=== PATIENT | female | born 1965 | race American Indian/Alaskan Native ===

== ENCOUNTER 2017-08-17 06:21 | Day surgery (SDC) | payer BC, MEDICARE ==
[2017-08-17] MEDS ORDERED: XYLOCAINE MPF 2% ONE (07:30)
[2017-08-17] MEDS ORDERED: WATER FOR IRRIG STERILE IR ONE (07:33)
[2017-08-17] MEDS ORDERED: DIPRIVAN 10 MG/ML IV ONE ×3 (07:40→08:06)
[2017-08-17] MEDS ORDERED: NACL 0.9% 1000 ML 1,000 ML IV SCH (08:00)
--- NOTE | 2017-08-17 08:41 | Short Stay Summary ---
Short Stay Documentation - Allergies and Medications Current Medications: Allergies No Known Allergies Allergy (Verified 11/14/14 07:05) Home Medications Medication Instructions Recorded Confirmed Last Taken Type Carvedilol [Coreg] 3.12 mg PO BID 11/13/14 02/24/16 02/22/16 13:00 History 3.125MG Cyclobenzaprine [Flexeril 10 MG 10 mg PO DAILY 11/13/14 02/24/16 02/23/16 22:00 History TAB] 10MG Gabapentin [Gralise] 300 mg PO HS 11/13/14 02/24/16 02/23/16 22:00 History 300MG Hydrochlorothiazide [HCTZ] 25 mg PO QDAY 11/13/14 02/24/16 02/23/16 22:00 History 25MG Zolpidem [Ambien] 10 mg PO QHS 11/13/14 02/24/16 02/23/16 22:00 History 10MG ALBUTEROL Inhaler [ProAir HFA 2 puff INHALATION PRN PRN 02/10/16 02/24/16 2 Days Ago History Inhaler] ~02/22/16 Albuterol Sulfate [Albuterol 0.63% 1 dose INHALATION PRN PRN 02/10/16 02/24/16 1 Month Ago History NEBS] ~01/24/16 Allopurinol [Zyloprim] 300 mg PO QDAY 02/10/16 02/24/16 02/23/16 10:00 History 300MG Docusate Sodium [Colace CAP] 1 cap PO DAILY 02/10/16 02/24/16 02/23/16 16:00 History 1 cap Methadone HCl 5 mg PO DAILY 02/24/16 02/24/16 02/23/16 22:00 History 5MG Celecoxib [celeBREX] 200 mg PO BID capsule 02/26/16 Unknown Rx HYDROcodone/APAP 10-325 [[place] 1 each PO Q8HR PRN #45 tablet 02/26/16 Unknown Rx 10-325 mg TAB] Rivaroxaban [Xarelto] 10 mg PO QDAY tablet 02/26/16 Unknown Rx Active Medications Sodium Chloride (Nacl 0.9% 1000 Ml) 1,000 mls @ 50 mls/hr IV DIRECT ISSA Last Admin: 08/17/17 07:25 Dose: 50 mls/hr - Brief post op/procedure progress note Date of procedure: 08/17/17 Pre-op diagnosis: 1. Melena 2. RLQ abdominal pain 3. Colon cancer screening Post-op diagnosis: same (EGD: 1. GERD 2. Gastritis(erosive) 3. gastric ulcers 4. Duodenitis Colonoscopy: 1. Poor prep 2. Internal hemorrhoids 3. Rectal polyps) Procedure: 1. EGD with biopsy 2. Colonoscopy with biopsy Anesthesia: MAC Findings: as above Surgeon: TESSA LOPEZ Estimated blood loss: none Pathology: none (1. Antrum 2. Rectal polyps) Specimen disposition: to lab Condition: stable - Disposition Condition at discharge: Stable Disposition: [id number] TO HOME OR SELFCARE Short Stay Discharge Plan Activity: no restrictions Weight Bearing Status: Full Weight Bearing Diet: regular, low salt Follow up with: NICOLE JANE JR, MD [Primary Care Provider] - 7 Days
--- NOTE | 2017-08-17 08:47 | Anesthesia Day of Surgery ---
Anesthesia Day of Surgery - Day of Surgery Patient Examined: Yes Patient H&P Reviewed: Yes Patient is NPO: Yes
--- NOTE | 2017-08-17 08:47 | Anesthesia Consultation ---
Anesthesia Consult and Med Hx Date of service: 08/17/17 - Airway Anesthetic Teeth Evaluation: Poor (missing, broken back lower ) ROM Head & Neck: Adequate Mental/Hyoid Distance: Adequate Mallampati Class: Class III Intubation Access Assessment: Possibly Difficult - Pulmonary Exam CTA: Yes - Cardiac Exam Cardiac Exam: RRR - Pre-Operative Health Status ASA Pre-Surgery Classification: ASA3 Proposed Anesthetic Plan: MAC - Pulmonary Hx Smoking: Yes Hx Asthma: Yes COPD: Yes Hx Pneumonia: No Hx Sleep Apnea: Yes (cpap) - Cardiovascular System Hx Hypertension: Yes - Central Nervous System CVA: Yes ("MILD" 5 YRS AGO-left weakness ) Hx Back Pain: Yes (BACK PAIN WITH PETER LEG WEAKNESS/NUMBNESS) - Hematic Hx Anemia: Yes - Other Systems Hx Obesity: Yes
[2017-08-17 09:29] VITALS: BP 137/88
== END 2017-08-17 06:22 | disposition home or self-care (01) ==
LOC: GIO 06:21
PROVIDERS: ATTEND Internal Medicine Gastroenterology
DX: K62.1 Rectal polyp (principal); K31.7 Polyp of stomach and duodenum; K64.0 First degree hemorrhoids; K29.00 Acute gastritis without bleeding; K29.80 Duodenitis without bleeding; K21.9 Gastro-esophageal reflux disease without esophagitis; I10 Essential (primary) hypertension; J44.9 Chronic obstructive pulmonary disease, unspecified; E66.9 Obesity, unspecified; G47.33 Obstructive sleep apnea (adult) (pediatric); Z86.010 Personal history of colon polyps; Z99.89 Dependence on other enabling machines and devices; Z86.73 Personal history of transient ischemic attack (TIA), and cerebral infarction without residual deficits; Z90.710 Acquired absence of both cervix and uterus; Z87.891 Personal history of nicotine dependence; Z68.42 Body mass index [BMI] 45.0-49.9, adult
CPT/HCPCS: 43239; 45380; 88305; 88342; J2704; J7030

== ENCOUNTER 2017-09-06 07:17 | Outpatient (CLI) | payer MEDICARE ==
--- NOTE | 2017-09-06 10:13 | Fluoroscopy Report ---
AIR CONTRAST BARIUM ENEMA: History: Colon cancer screening, constipation. History of polyps. Findings: No relevant comparison. Video Manager film of the abdomen is within normal limits. A rectal tube was inserted for retrograde administration of barium contrast agent and air. The colon is normal mucosal pattern and caliber throughout. There is no evidence for stricture, mass, diverticulosis or obvious polyp. Normal appendix. The postevacuation film demonstrates normal emptying of the colon. Impression: Air contrast barium enema within normal limits.
== END 2017-09-06 07:18 | disposition home or self-care (01) ==
LOC: FLUORO 07:17
PROVIDERS: ATTEND Internal Medicine Gastroenterology
DX: Z12.11 Encounter for screening for malignant neoplasm of colon (principal); K59.00 Constipation, unspecified; I11.0 Hypertensive heart disease with heart failure; I50.9 Heart failure, unspecified; K21.9 Gastro-esophageal reflux disease without esophagitis; Z86.010 Personal history of colon polyps; Z87.891 Personal history of nicotine dependence
CPT/HCPCS: 74280

== ENCOUNTER 2018-09-13 09:41 | Day surgery (SDC) | payer MEDICARE ==
[~2018-09-13 09:41] MED LIST: ANCEF/STERILE WATER 2 GM/20 ML IV NR
[2018-09-13] MEDS ORDERED: PEPCID PO NR (10:00)
[2018-09-13] MEDS ORDERED: MARCAINE-EPI 0.25%-1:200,000 INFILTRATI ONE (10:10)
[2018-09-13] MEDS ORDERED: ADRENALINE P/F ONE (10:10)
[2018-09-13] MEDS ORDERED: XYLOCAINE 1% 20 mL ONE (10:40)
[2018-09-13] MEDS ORDERED: MARCAINE-EPI 0.5%-1:200,000 INFILTRATI ONE (10:41)
[2018-09-13] MEDS ORDERED: SUBLIMAZE IV ONE (11:00)
[2018-09-13] MEDS ORDERED: NEURONTIN PO NR (11:00)
[2018-09-13] MEDS ORDERED: LACTATED RINGERS 1,000 ML IV SCH (11:00)
[2018-09-13] MEDS ORDERED: PEPCID IV SCH (11:00)
[2018-09-13] MEDS ORDERED: VERSED IV NR (11:00)
[2018-09-13] MEDS ORDERED: ZOFRAN IV PRN (11:37)
[2018-09-13] MEDS ORDERED: DILAUDID IV PRN (11:37)
--- NOTE | 2018-09-13 11:37 | Anesthesia Day of Surgery ---
Anesthesia Day of Surgery - Day of Surgery Patient Examined: Yes Patient H&P Reviewed: Yes Patient is NPO: Yes
--- NOTE | 2018-09-13 11:37 | Anesthesia Consultation ---
Anesthesia Consult and Med Hx - Airway Anesthetic Teeth Evaluation: Good ROM Head & Neck: Adequate Mental/Hyoid Distance: Adequate Mallampati Class: Class II Intubation Access Assessment: Good - Pulmonary Exam CTA: Yes - Cardiac Exam Cardiac Exam: RRR - Pre-Operative Health Status ASA Pre-Surgery Classification: ASA3 Proposed Anesthetic Plan: General Nerve Block: IS - Pulmonary Hx Smoking: Yes (1/ PPD) Hx Asthma: Yes COPD: Yes (PRN INHALERS / NEB) Hx Sleep Apnea: Yes (DX SLEEP APNEA WITH CPAP USE.) - Cardiovascular System Hx Hypertension: Yes (X 5 YRS) - Central Nervous System CVA: Yes (7-10 YRS AGO- MILD LEFT SIDED WEAKNESS) Hx Back Pain: Yes (TO PETER LEGS WITH WEAKNESS & NUMBNESS , DAILY PAIN MEDS) Hx Psychiatric Problems: No - Gastrointestinal Hx Ulcer: Yes - Endocrine Hx End Stage Renal Disease: No - Hematic Hx Anemia: Yes (NOT RECENT) - Other Systems Hx Cancer: No Hx Obesity: Yes
[2018-09-13] MEDS ORDERED: DIPRIVAN 10 MG/ML IV ONE (11:39)
[2018-09-13] MEDS ORDERED: XYLOCAINE MPF 2% ONE (11:39)
[2018-09-13] MEDS ORDERED: SUBLIMAZE ONE (12:16)
[2018-09-13] MEDS ORDERED: ADRENALINE P/F IRRIGATION ONE ×2 (12:53)
[2018-09-13] MEDS ORDERED: ZEMURON IV ONE (13:40)
[2018-09-13] MEDS ORDERED: ROBINUL ONE (13:40)
[2018-09-13] MEDS ORDERED: BLOXIVERZ ONE (13:40)
[2018-09-13] MEDS ORDERED: ZOFRAN ONE (13:40)
[2018-09-13] MEDS ORDERED: PERCOCET 5/325 ONE (14:18)
[2018-09-13] MEDS ORDERED: PERCOCET 5/325 PO ONE (14:21)
--- NOTE | 2018-09-13 14:56 | Post Anesthesia Evaluation ---
- Post Anesthesia Evaluation Patient Participated: Yes Airway Patent: Yes Stable Respiratory Function: Yes Nausea/Vomiting: No Temp > 96.8F: Yes Pain Manageable: Yes Adequeate Hydration: Yes Anesthesia Complications: No Block Receding Appropriately: Yes Patient on Ventilator: No
[2018-09-13 16:00] VITALS: BP 140/82
--- NOTE | 2018-10-04 15:06 | Operative Report ---
PREOPERATIVE DIAGNOSES: Left shoulder with impingement syndrome, bursitis, rotator cuff tear. POSTOPERATIVE DIAGNOSES: 1. Left shoulder with extensive synovitis. 2. Loose body. 3. Extensive global labral tearing fraying. 4. Rotator cuff attenuation. 5. Grade 3 chondral lesion central aspect, trochlear groove. 6. Subacromial impingement, bursitis. PROCEDURE PERFORMED: 1. Left shoulder arthroscopy with extensive debridement including synovectomy, labral debridement, rotator cuff debridement and chondroplasty glenoid. 2. Arthroscopic loose body removal. 3. Arthroscopic subacromial bursectomy and decompression. SURGEON: Singh Fung M.D. SCRAP SAWYER: Nile Yen CSA. ANESTHESIA: General plus scalene block. ESTIMATED BLOOD LOSS: Minimal. COMPLICATIONS: None. DESCRIPTION OF PROCEDURE: The patient underwent successful induction of anesthesia. She was positioned in a beach chair position, prepped and draped in the usual fashion. The patient was morbidly obese, increasing the complexity of the procedure. After antibiotic administration and prepping, the arthroscopy was performed utilizing standard posterior portal and entry made through the triangular space under direct vision. Systematic exam of the joint was carried out, demonstrated the findings noted. Marked synovitis noted with marked labral attenuation and fraying which was appropriately debrided. The articular surface of the humeral head was relatively well preserved, but the glenoid demonstrated large central chondral lesion grade 3. A gentle chondroplasty affected with a full-radius resector. The biceps itself was relatively well preserved. The rotator cuff though demonstrated attenuation, demonstrated no detachment. Loose bodies were removed from the intra-articular space and with consideration of even synovial chondromatosis. The excellent debridement was carried out utilizing both portals. No further abnormalities were noted. At this point in time, the arthroscope was placed in the subacromial space of the posterior portal. Noted to have a marked subacromial bursitis. A type 3 acromion was noted. Through straight lateral portal, decompression was affected with a cutting block technique. An excellent flat surface was achieved. The outer surface of the cuff demonstrated marked subacromial bursitis and this was appropriately debrided. Excellent debridement achieved. No significant full thickness tearing was noted. Again, the rotator cuff appeared to be relatively well preserved, certainly in continuity. Thorough probing of this was carried out. Limited attenuation was noted but as noted, no tearing and no detachment. It was not felt this required any further treatment. Intraoperative photos were obtained for documentation. The arthroscopic instrumentation was removed. Ports were closed with nylon sutures. Steri-Strips were applied. She was taken to the recovery in satisfactory condition having tolerated the procedure well. JOB# [id number] REBEKAP/NTS
== END 2018-09-13 09:42 | disposition home or self-care (01) ==
LOC: OR 09:41
PROVIDERS: ATTEND Orthopaedic Surgery
DX: S43.492A Other sprain of left shoulder joint, initial encounter (principal); M65.812 Other synovitis and tenosynovitis, left shoulder; M24.012 Loose body in left shoulder; M75.52 Bursitis of left shoulder; I10 Essential (primary) hypertension; M10.9 Gout, unspecified; G43.909 Migraine, unspecified, not intractable, without status migrainosus; I11.0 Hypertensive heart disease with heart failure; I50.9 Heart failure, unspecified; E78.00 Pure hypercholesterolemia, unspecified; J44.9 Chronic obstructive pulmonary disease, unspecified; G47.30 Sleep apnea, unspecified; E66.9 Obesity, unspecified; K21.9 Gastro-esophageal reflux disease without esophagitis; F17.210 Nicotine dependence, cigarettes, uncomplicated; M06.9 Rheumatoid arthritis, unspecified; F32.9 Major depressive disorder, single episode, unspecified; F41.9 Anxiety disorder, unspecified; Z80.0 Family history of malignant neoplasm of digestive organs; Z79.899 Other long term (current) drug therapy; Z68.42 Body mass index [BMI] 45.0-49.9, adult; Z90.710 Acquired absence of both cervix and uterus; Z86.73 Personal history of transient ischemic attack (TIA), and cerebral infarction without residual deficits; X58.XXXA Exposure to other specified factors, initial encounter; Y93.89 Activity, other specified; Y92.89 Other specified places as the place of occurrence of the external cause; Y99.8 Other external cause status
CPT/HCPCS: 29823; 36415; 84132; J0171; J0690; J1170; J2250; J2405; J2704; J2710; J3010; J7120

== ENCOUNTER 2018-12-27 10:44 | Day surgery (SDC) | payer MEDICARE ==
[~2018-12-27 10:44] MED LIST changes: +MARCAINE-EPI 0.25%-1:200,000 IJ ONE
[2018-12-27] MEDS ORDERED: XYLOCAINE MPF 2% ONE (11:58)
[2018-12-27] MEDS ORDERED: VERSED ONE (11:58)
[2018-12-27] MEDS ORDERED: SUBLIMAZE ONE (11:59)
[2018-12-27] MEDS ORDERED: DIPRIVAN 10 MG/ML IV ONE ×2 (11:59→14:05)
[2018-12-27] MEDS ORDERED: MARCAINE-EPI 0.25%-1:200,000 INFILTRATI ONE (12:27)
[2018-12-27] MEDS ORDERED: ZOFRAN IV PRN (12:32)
[2018-12-27] MEDS ORDERED: PROTONIX IV NR (12:35)
--- NOTE | 2018-12-27 12:38 | Anesthesia Day of Surgery ---
Anesthesia Day of Surgery - Day of Surgery Patient Examined: Yes Patient H&P Reviewed: Yes Patient is NPO: Yes Beta Blockers: Yes
--- NOTE | 2018-12-27 12:40 | Anesthesia Consultation ---
Anesthesia Consult and Med Hx Date of service: 12/27/18 - Airway Anesthetic Teeth Evaluation: Chipped ROM Head & Neck: Adequate Mental/Hyoid Distance: Adequate Mallampati Class: Class III Intubation Access Assessment: Probably Good - Pre-Operative Health Status ASA Pre-Surgery Classification: ASA3 Proposed Anesthetic Plan: General - Pulmonary Hx Smoking: Yes (/ PPD) Hx Asthma: Yes (DAILY INHALER) Hx Respiratory Symptoms: Yes COPD: Yes (PRN INHALERS / NEB) Hx Sleep Apnea: Yes (DX SLEEP APNEA WITH CPAP USE.) - Cardiovascular System Hx Hypertension: Yes (X 5 YRS) - Central Nervous System CVA: Yes (7-10 YRS AGO- MILD LEFT SIDED WEAKNESS) Hx Back Pain: Yes (TO PETER LEGS WITH WEAKNESS & NUMBNESS , DAILY PAIN MEDS) - Gastrointestinal Hx Ulcer: Yes Hx Gastroesophageal Reflux Disease: Yes - Endocrine Hx End Stage Renal Disease: No - Hematic Hx Anemia: Yes (NOT RECENT) - Other Systems Hx Cancer: No Hx Obesity: Yes
[2018-12-27] MEDS ORDERED: LACTATED RINGERS 1,000 ML IV SCH (13:00)
[2018-12-27] MEDS ORDERED: REGLAN IV NR (13:00)
[2018-12-27] MEDS ORDERED: COREG PO NR (13:00)
[2018-12-27] MEDS ORDERED: NACL 0.9% IR ONE (13:30)
[2018-12-27] MEDS ORDERED: ZEMURON IV ONE (13:44)
[2018-12-27] MEDS ORDERED: MARCAINE-EPI 0.25%-1:200,000 IJ ONE (14:25)
[2018-12-27] MEDS ORDERED: DECADRON ONE (14:27)
[2018-12-27] MEDS ORDERED: ZOFRAN ONE (14:27)
[2018-12-27] MEDS ORDERED: ROBINUL ONE (14:28)
[2018-12-27] MEDS ORDERED: BLOXIVERZ ONE (14:28)
[2018-12-27] MEDS: SUBLIMAZE IV PRN ×4 (14:45→15:40)
[2018-12-27 16:19] VITALS: BP 122/82
--- NOTE | 2018-12-27 16:42 | Post Anesthesia Evaluation ---
- Post Anesthesia Evaluation Patient Participated: Yes Airway Patent: Yes Stable Respiratory Function: Yes Nausea/Vomiting: No Temp > 96.8F: Yes Pain Manageable: Yes Adequeate Hydration: Yes Anesthesia Complications: No
--- NOTE | 2018-12-27 18:19 | Operative Report ---
PREOPERATIVE DIAGNOSES: 1. Right knee with degenerative joint disease and meniscal tears. 2. Morbid obesity. INTRAOPERATIVE FINDINGS: 1. Right knee with extensive tear, medial meniscus. 2. Extensive tear, lateral meniscus. 3. Grade 3 chondromalacia, medial femoral condyle. 4. Grade 3 chondromalacia, patella. 5. Extensive synovitis. PROCEDURE PERFORMED: 1. Right knee arthroscopy with partial medial and lateral meniscectomy -- complex -- morbid obesity. 2. Extensive synovectomy, tricompartmental. 2. Chondroplasty, patella. 4. Chondroplasty, medial femoral condyle. SURGEON: Dr. Singh Fung. BAR MANAGER: Nile Yen CSA. ANESTHESIA: General. ESTIMATED BLOOD LOSS: Minimal. COMPLICATIONS: None. DESCRIPTION OF PROCEDURE: The patient underwent successful induction of anesthesia, extremity was kept on well-leg nunez, prepped and draped in usual fashion. Antibiotics were pre-administered. Lower extremity was exsanguinated, tourniquet inflated. This was a complex procedure given her morbid obesity. Arthroscopy was carried out with standard medial and lateral portals. Systematic exam of the joint was carried out demonstrated the findings noted. The tricompartmental extensive synovitis was noted which was appropriately debrided. Patellofemoral compartment demonstrated relatively well preserved trochlear groove. The patella demonstrated diffuse grade 3 chondromalacia gently debrided with a surface at low pressure setting in a noncontact chondral sparing mode. The lateral compartment demonstrated extensive complex tearing of the meniscus globally throughout debrided with a combination of bites full resector and surface. An excellent stable rim was achieved, allowing preservation of the peripheral 2/3 of meniscus throughout. Intraoperative photos were obtained for documentation. The articular surface relatively observed with the lateral compartment with the exception of fissuring on the lateral tibial plateau. The notch demonstrated some attenuation of the ACL. Synovectomy again performed. The medial compartment demonstrated grade 3 chondral lesion in medial femoral condyle, unstable chondral flaps, gently debrided with a full radius resector. The meniscus demonstrated a radial tear at the junction of the posterior horn body and central degenerative changes, again debrided with a full radius resector and surface allowing preservation of peripheral 70-75% of meniscus throughout. Intraoperative photos were obtained for documentation. The arthroscopic instrumentation was removed. The ports were closed with nylon suture. Steri-stripes were applied and taken to the recovery room in satisfactory condition having tolerated the procedure well. JOB# [id number] RDP/NTS
== END 2018-12-27 16:50 | disposition home or self-care (01) ==
LOC: OR 10:44
PROVIDERS: ATTEND Orthopaedic Surgery
DX: M23.221 Derangement of posterior horn of medial meniscus due to old tear or injury, right knee (principal); M23.200 Derangement of unspecified lateral meniscus due to old tear or injury, right knee; M22.41 Chondromalacia patellae, right knee; M65.861 Other synovitis and tenosynovitis, right lower leg; E66.01 Morbid (severe) obesity due to excess calories; F32.9 Major depressive disorder, single episode, unspecified; F41.9 Anxiety disorder, unspecified; M06.9 Rheumatoid arthritis, unspecified; K21.9 Gastro-esophageal reflux disease without esophagitis; J44.9 Chronic obstructive pulmonary disease, unspecified; G47.30 Sleep apnea, unspecified; I11.0 Hypertensive heart disease with heart failure; I50.9 Heart failure, unspecified; E78.00 Pure hypercholesterolemia, unspecified; F17.210 Nicotine dependence, cigarettes, uncomplicated; Z79.899 Other long term (current) drug therapy; Z80.0 Family history of malignant neoplasm of digestive organs; Z96.652 Presence of left artificial knee joint; Z90.710 Acquired absence of both cervix and uterus; Z90.721 Acquired absence of ovaries, unilateral; Z68.42 Body mass index [BMI] 45.0-49.9, adult; Z86.2 Personal history of diseases of the blood and blood-forming organs and certain disorders involving the immune mechanism; Z86.73 Personal history of transient ischemic attack (TIA), and cerebral infarction without residual deficits; X58.XXXA Exposure to other specified factors, initial encounter; Y93.89 Activity, other specified; Y92.89 Other specified places as the place of occurrence of the external cause; Y99.8 Other external cause status
CPT/HCPCS: 29876; 29880; A4217; C9113; J0690; J1100; J2250; J2405; J2704; J2710; J2765; J3010; J7120

== ENCOUNTER 2019-01-18 09:44 | Outpatient (CLI) | payer MEDICARE ==
--- NOTE | 2019-01-18 12:30 | Mammography Report ---
DIGITAL SCREENING MAMMOGRAM WITH CAD, 01/18/2019 INDICATION: Routine screening mammography. TECHNIQUE: Digital bilateral 2D mammography was obtained in the craniocaudal and mediolateral obliq ue projections. This examination was interpreted with the benefit of Computer-Aided Detection analysi s. COMPARISON: None. FINDINGS: Breast Density: There are scattered areas of fibroglandular density. There is no evidence of dominant mass, suspicious calcifications or architectural distortion in eithe r breast. IMPRESSION: No mammographic evidence of malignancy. Follow up recommendation: Routine yearly BI-RADS Category 1: Negative. A "normal" or negative report should not discourage follow up or biopsy of a clinically significant f inding. A written summary of these findings will be mailed to the patient. The patient will be entered into a mammography reporting system which will generate a reminder letter for the patient's next appointmen t at the appropriate interval. The [employer] recommends yearly mammograms starting at age 40 and continuing as l norris as a woman is in good health. Breast MRI is recommended for women with an approximate 20-25% or greater lifetime risk of breast cancer, including women with a strong family history of breast or ova chriss cancer or who have been treated for Hodgkin's disease. Signer Name: Tj Casarez MD Signed: 01/18/2019 12:25 PM Workstation Name: [id number]
== END 2019-01-18 09:45 | disposition home or self-care (01) ==
LOC: MAMMO 09:44
PROVIDERS: ATTEND Family Medicine
DX: Z12.31 Encounter for screening mammogram for malignant neoplasm of breast (principal); I11.0 Hypertensive heart disease with heart failure; I50.9 Heart failure, unspecified; E78.00 Pure hypercholesterolemia, unspecified; K21.9 Gastro-esophageal reflux disease without esophagitis; Z90.710 Acquired absence of both cervix and uterus; J44.9 Chronic obstructive pulmonary disease, unspecified
CPT/HCPCS: 77067

== ENCOUNTER 2021-10-01 06:05 | Observation (INO) | payer MEDICARE ==
[2021-09-29 12:01] LABS: INR 0.92 (0.87-1.13); Partial Thromboplastin Time 25.9 Sec. (24.2-36.6)
[~2021-10-01 06:05] MED LIST changes: +ACETAMINOPHEN 500 MG TAB PO NR; -ANCEF/STERILE WATER 2 GM/20 ML IV NR; +CELECOXIB 200 MG CAP PO NR; +GABAPENTIN 300 MG CAP PO NR; +GABAPENTIN 400 MG CAP PO NR; +LACTATED RINGERS 1,000 ML IV SCH; +MAGNESIUM OXIDE 400 MG TAB PO NR; -MARCAINE-EPI 0.25%-1:200,000 IJ ONE; +MIDAZOLAM 2 MG/2 ML INJ IV NR; +fentaNYL 100 MCG/2 ML INJ IV NR
[2021-10-01] MEDS ORDERED: ROPIVACAINE/PF (0.5%) 5 MG/1 ML 30 ML VIAL ONE (06:42)
[2021-10-01] MEDS ORDERED: dexAMETHasone 4 MG/ML VIAL ONE (06:43)
[2021-10-01] MEDS ORDERED: KETAMINE/STERILE WATER 50 MG/ML SYRINGE ONE (06:56)
--- NOTE | 2021-10-01 07:06 | Anesthesia Day of Surgery ---
Anesthesia Day of Surgery - Day of Surgery Patient Examined: Yes Patient H&P Reviewed: Yes Patient is NPO: Yes Beta Blockers: Yes Cardiac Clearance: Yes Pulmonary Clearance: No Herrera's Test: N/A
--- NOTE | 2021-10-01 07:08 | Anesthesia Consultation ---
Anesthesia Consult and Med Hx Date of service: 10/01/21 - Airway Anesthetic Teeth Evaluation: Good ROM Head & Neck: Adequate Mental/Hyoid Distance: Adequate Mallampati Class: Class II Intubation Access Assessment: Good - Pulmonary Exam CTA: Yes - Cardiac Exam Cardiac Exam: RRR - Pre-Operative Health Status ASA Pre-Surgery Classification: ASA3 Proposed Anesthetic Plan: Spinal Nerve Block: Adductor - Pulmonary Hx Smoking: Yes Hx Asthma: Yes (DAILY INHALER) Hx Respiratory Symptoms: Yes COPD: Yes Hx Sleep Apnea: Yes - Cardiovascular System Hx Hypertension: Yes Hx Heart Attack/AMI: No Hx Angina: No - Central Nervous System CVA: Yes (10 YRS AGO- MILD LEFT SIDED WEAKNESS/OFF BLOOD THINNERS) Hx Back Pain: Yes (TO PETER LEGS WITH WEAKNESS & NUMBNESS , DAILY PAIN MEDS) - Gastrointestinal Hx Ulcer: Yes Hx Gastroesophageal Reflux Disease: Yes - Endocrine Hx Renal Disease: No Hx End Stage Renal Disease: No Hx Liver Disease: No Hx Non-Insulin Dependent Diabetes: Yes - Hematic Hx Anemia: Yes (NOT RECENT) - Other Systems Hx Alcohol Use: Yes (OCCASIONAL) Hx Cancer: No Hx Obesity: Yes - Additional Comments Anesthesia Medical History Comments: CHF. sx history: C/S, L TKA, B CTR, Hyst
[2021-10-01] MEDS ORDERED: LIDOCAINE (1%) 10 MG/1 ML VIAL 20 ML MDV ONE (07:23)
[2021-10-01] MEDS ORDERED: NEOMY 40 MG/POLYMYXIN B 200,000 UNITS/ML (GU) AMPULE IR ONE ×2 (07:38→10:02)
[2021-10-01] MEDS ORDERED: methylPREDNISolone ACETATE 40 MG/1 ML INJ ONE (07:39)
[2021-10-01] MEDS ORDERED: BUPIVACAINE/PF (0.5%) 5 MG/1 ML 30 ML VIAL INFILTRATI ONE ×2 (07:40→09:53)
[2021-10-01] MEDS ORDERED: MORPHINE 10 MG/1 ML INJ ONE (07:40)
[2021-10-01] MEDS ORDERED: TRANEXAMIC ACID 1,000 MG/10 ML ONE (07:43)
[2021-10-01] MEDS ORDERED: SODIUM CHLORIDE P/F VIAL 10 ML 40 ML ONE (07:43)
[2021-10-01] MEDS ORDERED: LIDOCAINE-MPF (1%) 10 MG/1 ML VIAL 5 ML INFILTRATI ONE (07:47)
[2021-10-01] MEDS ORDERED: ceFAZolin/STERILE WATER 2 GM/20 ML SYRINGE IV NR (08:00)
[2021-10-01] MEDS ORDERED: ONDANSETRON 4 MG/2 ML INJ ONE (08:41)
[2021-10-01] MEDS ORDERED: ceFAZolin 1 GM VIAL ONE (08:41)
[2021-10-01] MEDS ORDERED: SODIUM CHLORIDE P/F VIAL 10 ML 10 ML ONE (09:11)
[2021-10-01] MEDS ORDERED: MORPHINE 10 MG/1 ML INJ IM ONE (09:56)
[2021-10-01] MEDS ORDERED: methylPREDNISolone ACETATE 40 MG/1 ML INJ INTRA-ARTI ONE (09:57)
[2021-10-01] MEDS ORDERED: SODIUM CHLORIDE 0.9% P/F 10 ML VIAL INFILTRATI ONE (09:58)
[2021-10-01] MEDS ORDERED: SODIUM CHLORIDE 0.9% IRRIG SOLN 2000 ML IR ONE (10:01)
[2021-10-01] MEDS ORDERED: WATER FOR IRRIG STERILE 1,500 ML BOTTLE IR ONE (10:02)
[2021-10-01] MEDS ORDERED: SODIUM CHLORIDE 0.9% IRR 1,500 ML BOTTLE IR ONE (10:03)
[2021-10-01] MEDS ORDERED: propofoL 200 MG/20 ML VIAL IV ONE (10:36)
[2021-10-01] MEDS ORDERED: VANCOMYCIN 1000 MG INJ ONE (10:38)
[2021-10-01] MEDS ORDERED: VANCOMYCIN 1,000 MG/20 ML IV ONE (10:58)
[2021-10-01] MEDS ORDERED: SODIUM CHLORIDE 0.9% 1000 ML 1,000 ML ONE (11:00)
[2021-10-01] MEDS ORDERED: ALBUTEROL 2.5 MG/3 ML NEBU IH ONE ×2 (12:19→14:00)
[2021-10-01] MEDS ORDERED: SODIUM CHLORIDE FOR INHALATION NEBU 3 ML ONE (12:20)
--- NOTE | 2021-10-01 12:21 | Post Operative Note ---
Date of procedure: 10/01/21 Pre-op diagnosis: Right knee osteoarthritis, COPD, morbid obesity - BMI 42.1 Post-op diagnosis: same Findings: Severe right knee osteoarthritis Procedure: Right total knee replacement Anesthesia: spinal Surgeon: HELEN VILLA Pharmacy Resident: ANA LUISA NGUYEN Estimated blood loss: minimal Pathology: none Condition: stable Disposition: PACU
--- NOTE | 2021-10-01 12:59 | Operative Report ---
Operative Report Operative Report: Patient Name: Jelani Kaiser Date of : 1965 Date of Surgery: 10/01/21 Pre-Operative Diagnosis: 1. Right knee osteoarthritis 2. Morbid Obesity - Ht: 5' 4", wt: 111.13 kg, BMI: 42.1kg 3. Chronic obstructive pulmonary disease - former smoker Post-Operative Diagnosis: 1. Right knee osteoarthritis 2. Morbid Obesity - Ht: 5' 4", wt: 111.13 kg, BMI: 42.1kg 3. Chronic obstructive pulmonary disease - former smoker Procedure: Right Total knee replacement Surgeon: Dre Arzate DO Assistants: Sharee Leonardo PA-C EBL: 50cc Complications: None Anesthesia: GETA, plus regional nerve block for post-operative pain control Implants: Medacta GMK Sphere size 3 femur, size 3 tibia with a 11 x 30mm tibial stem , 10mm CS polyethylene insert, size 3 patella, Tourniquet Time: 120 minutes Indications for surgery: This is a 56-year-old female who presented with worsening right knee pain over the last 4+ years, She previously had her left total knee replacement done by a different surgeon. Her pain is worse with weight bearing. Patient had difficulty ambulating, using stairs because of the pain. Patient had tried nonoperative management including physical therapy/home exercises, joint injections, anti-inflammatory medications, activity modifications, ambulating with assistive devices without any lasting pain relief. Patient is at high risk for infection and complication given her BMI of 42.1 and her smoking. Patient was counseled on these added risks. She stopped smoking , per the patient, in August. Prior to the patinet seeing me she was trying to lose low but was having significant difficulty due to her severe right knee pain. Patient elected to undergo right total knee replacement. Patient was met in the preoperative holding area where the risk, benefits, alternatives to surgery were explained to the patient in detail. Risks include but are not limited to infection, bleeding, neurovascular injury, soft tissue injury, infection, need for further surgery, need for revision surgery, fracture, dislocation, pain, stiffness, loss of limb, loss of life. Informed consent was obtained after all questions were thoroughly answered. Indications for modifier 22: 1. Extensile exposure with extended surgical time, 3+ hour OR time 2. Morbid Obesity Ht: 5' 4", wt: 111.13 kg, BMI: 42.1kg Jelani's Case was arduous and technically demanding requiring increased exposure, OR time, and surgical ability. Her stats: Ht: 5' 4", wt: 111.13 kg, BMI: 42.1kg. Due to the patient's morbid obesity her procedure required additional surgical exposure to allow for proper insertion of implants as well as a stem on her tibial implant. There was 3 cm of adipose tissue between her skin and her patella. Based on the above this procedure was appropriately coded with a 22 modifier. Procedure: Patient was placed supine on the operating room table and all bony prominences were well-padded. The right lower extremity was prepped and draped in the usual sterile fashion. A timeout was performed by all members of the operating room team. An Esmarch bandage was used to wrap the right lower extremity and the tourniquet was inflated to 300 mmHg. A midline incision was made over the right knee. Sharp dissection was used to go through the skin and the subcutaneous fat. Medial and lateral fasciocutaneous flaps were then elevated. Using electrocautery a medial parapatellar arthrotomy was then performed. Upon inspection of the knee joint there was severe osteoarthritis in the medial, lateral and patellofemoral compartments. The ACL and the PCL as well as the meniscal remnants were then removed. A custom cutting guide had been made for the patient preoperatively based on CT scans. It was then fixed to the distal femur using 3 pins. Using an oscillating saw the distal femoral resection was then performed. The custom cutting guide was then removed and a size 3 4-in-1 cutting block was then secured to the distal femur using 2 bone screws. Again using the oscillating saw the anterior and posterior distal femoral cuts were made along with the anterior and posterior chamfer cuts. Next our attention was then turned to the proximal tibia. The custom proximal tibial cutting jig was then secured to the proximal tibia using 3 pins. An oscillating saw was used to make our proximal tibial resection. Next using a laminar wild[place] fire fighter specialist the knee joint was opened up in 90 degrees of flexion. Using a 1 inch curved osteotome was used to remove extensive posterior osteophytes from both the posterior medial distal femur as well as posterior lateral distal femur. The meniscal remnants were then removed. Next the tibia was anteriorly subluxed and a size 3 tibial guide was then placed in the appropriate amount of rotation parallel to the rotational axis of the tibia of the [place] knee. Tibial guide was secured to the proximal tibia using 2 pins. The tibia was then drilled and punched in the proper rotation. Trial components were then placed on the tibia as well as the femur. The knee was taken through the full range of motion and found to be stable. The knee was able to be flexed to 130 degrees and extension to 0 degrees. There is no varus or valgus laxity with the knee in full extension. The knee was flexed to 90 degrees and again varus and valgus stress was applied. There was no gapping of the medial side with the knee 90 degrees of flexion, the lateral side had approximately 2 mm of gapping which was consistent with a kinematics of the [place] knee joint. The patella was also tracking well within the trochlear groove with no lateral tilt or subluxation. The patella was then everted and cut down to 15 mm using. 3 holes were drilled into the patella and the trial button was placed. Again the knee was taken through the full range of motion with good patella tracking. At this point we were satisfied with the overall range of motion the stability of the patella tracking as well as the knee. All trials were then removed. The real components were opened and assembled on the back table. The knee was copiously irrigated with antibiotic saline and then dried. A local anesthetic cocktail was then injected into the posterior capsule as well as the surrounding deep tissues of the knee joint. 2 bags of cement were mixed with 2g of vancoymcin powder. Once the cement was in a doughy state the real components were cemented into place starting with the tibia followed by the femur and then the patella. All excess cement was then removed using curettes from around the implants. Once the cement had completely hardened the knee was irrigated again with diluted Betadine mixed with normal saline. The knee was then copiously irrigated with normal saline using pulsatile lavage. The tourniquet was let down. Electrocautery was used throughout the case to maintain meticulous hemostasis. The arthrotomy was then closed in flexion in a watertight fashion using #1 vicryl suture in an interrupted fashion. This was reinforced with a running #1 stratafix PDS suture. The deep fascial layer was closed with 0 Vicryl. The subcutaneous layers were closed with 2-0 Vicryl and the skin was closed with 2-0 nylon in a horizontal mattress fashion. The wound was then covered with an occlusive dressing. The right lower extremity was wrapped in an Darian wrap from the foot all the way up to the proximal thigh. The sponge and needle count were correct in the case. The patient was then awakened by the anesthesia team and taken to the recovery room in stable condition. The patient's right total knee arthroplasty was performed using the caliper kinematically aligned technique with patient specific custom cutting guides.
--- NOTE | 2021-10-01 13:59 | XRay Report ---
Right knee 2 views INDICATION: Knee replacement FINDINGS: Right knee arthroplasty appears satisfactory in position and alignment. No acute fractures seen. Signer Name: Yeyo Paulino MD Signed: 10/01/2021 1:55 PM Workstation Name: [id number][id number]
[2021-10-01] MEDS ORDERED: KETOROLAC 30 MG/1 ML INJ ONE (14:45)
[2021-10-01] MEDS ORDERED: KETOROLAC 30 MG/1 ML INJ IV ONE (14:47)
[2021-10-01] MEDS ORDERED: HYDROmorphone 0.5 MG/0.5 ML INJ ONE (15:48)
[2021-10-01] MEDS ORDERED: HYDROmorphone 0.5 MG/0.5 ML INJ IV PRN ×2 (15:50→17:38)
[2021-10-01] MEDS ORDERED: ONDANSETRON 4 MG/2 ML INJ IV PRN ×2 (15:50→15:57)
[2021-10-01] MEDS ORDERED: KETOROLAC 30 MG/1 ML INJ IV SCH (16:00)
[2021-10-01] MEDS ORDERED: SODIUM CHLORIDE 0.9% 1000 ML 1,000 ML IV SCH (16:00)
[2021-10-01] MEDS: MORPHINE 4 MG/1 ML INJ IV PRN (19:03)
--- NOTE | 2021-10-01 20:13 | Consultation ---
History of Present Illness - Reason for Consult Consult date: 10/01/21 Medical management Requesting physician: HELEN VILLA - History of Present Illness Patient is s/p right TKA. Postop patient is doing well. Patient has a history of COPD ,HTN and morbid obesity. Past History Past Medical History: COPD Past Surgical History: total knee replacement (Right) Social history: lives with family, full code Family history: hypertension Medications and Allergies Allergies Allergy/AdvReac Type Severity Reaction Status Date / Time No Known Allergies Allergy Verified 11/14/14 07:05 Home Medications Medication Instructions Recorded Confirmed Last Taken Type Gabapentin [Gralise] 800 mg PO BID 11/13/14 10/01/21 10/01/21 05:00 History Zolpidem (Nf) [Ambien (Nf)] 10 mg PO QHS 11/13/14 10/01/21 09/30/21 21:00 History carvediloL [Coreg] 6.25 mg PO BID 11/13/14 10/01/21 10/01/21 05:00 History hydroCHLOROthiazide [HCTZ] 25 mg PO QDAY 11/13/14 10/01/21 09/30/21 09:00 History Albuterol Mdi (or & Nicu Only) 2 puff INHALATION PRN PRN 02/10/16 10/01/21 10/01/21 06:00 History [ProAir HFA Inhaler] Albuterol Sulfate [Albuterol 0.63% 1 dose INHALATION PRN PRN 02/10/16 10/01/21 09/12/18 21:00 History NEBS] allopurinoL [Zyloprim] 300 mg PO QDAY 02/10/16 10/01/21 09/30/21 09:00 History clonazePAM [ Klonopin] 0.5 mg PO BID 08/31/18 10/01/21 09/30/21 17:00 History Tiotropium Br/Olodaterol HCl 2 puff IH DAILY 12/25/18 10/01/21 09/30/21 09:00 History [Stiolto Respimat Inhal [place]] oxyCODONE /ACETAMINOPHEN [Percocet 1 tab PO DAILY 07/12/19 10/01/21 Unknown History 5/325] Aleve 1 tab PO Q8HR 09/24/21 10/01/21 Unknown History Ozempic 1 mg SUB-Q QWEEK 09/24/21 10/01/21 09/27/21 09:00 History Tylenol 650 mg PO DAILY 09/24/21 10/01/21 09/30/21 09:00 History Zyrtec 10mg tab 10 mg PO DAILY 09/24/21 10/01/21 09/30/21 09:00 History metFORMIN 500 mg PO DAILY 09/24/21 10/01/21 09/30/21 09:00 History Active Meds: Active Medications Acetaminophen (Acetaminophen 325 Mg Tab) 650 mg PO Q8H [facility] Aspirin (Aspirin 325 Mg Tab) 81 mg PO BID [facility] Cefazolin Sodium (Cefazolin/Sterile Water 2 Gm/20 Ml Syringe) 2 gm IV PREOP NR Stop: 10/01/21 23:59 Celecoxib (Celecoxib 200 Mg Cap) 200 mg PO QDAY [facility] Docusate Sodium (Docusate Sodium 100 Mg Cap) 100 mg PO BID [facility] Hydromorphone HCl (Hydromorphone 0.5 Mg/0.5 Ml Inj) 0.25 mg IV Q10MIN PRN PRN Reason: Pain, Moderate (4-6) Stop: 10/02/21 17:37 Last Admin: 10/01/21 16:00 Dose: 0.25 mg Sodium Chloride (Nacl 0.9% 1000 Ml) 1,000 mls @ 75 mls/hr IV DIRECT [facility] Cefazolin Sodium 2 gm/ Sodium (Chloride) 100 mls @ 100 mls/hr IV Q8H [facility]; Protocol Stop: 10/02/21 01:14 Ketorolac Tromethamine (Ketorolac 30 Mg/1 Ml Inj) 30 mg IV Q6H [facility] Stop: 10/01/21 22:01 Midazolam HCl (Midazolam 2 Mg/2 Ml Inj) 2 mg IV PREOP NR Stop: 10/01/21 23:59 Last Admin: 10/01/21 07:30 Dose: 2 mg Morphine Sulfate (Morphine 4 Mg/1 Ml Inj) 4 mg IV Q4H PRN PRN Reason: Pain , Severe (7-10) Last Admin: 10/01/21 19:03 Dose: 4 mg Multivitamins (Multivitamins ,Therapeutic Tab) 1 each PO QDAY [facility] Ondansetron HCl (Ondansetron 4 Mg/2 Ml Inj) 4 mg IV ONCE PRN PRN Reason: Nausea And Vomiting Ondansetron HCl (Ondansetron 4 Mg/2 Ml Inj) 4 mg IV Q8H PRN PRN Reason: Nausea And Vomiting Oxycodone HCl (Oxycodone 5 Mg Tab) 10 mg PO Q4H PRN PRN Reason: Pain , Severe (7-10) Sodium Chloride (Sodium Chloride 0.9% 10 Ml Flush Syringe) 10 ml IV PRN PRN PRN Reason: LINE FLUSH Last Admin: 10/01/21 19:05 Dose: 10 ml Review of Systems All systems: negative Exam - Constitutional Vitals: Temp Pulse Resp BP Pulse Ox 98.5 F 70 18 144/75 97 10/01/21 18:15 10/01/21 18:15 10/01/21 18:15 10/01/21 18:15 10/01/21 19:58 General appearance: Present: no acute distress, well-nourished - EENT Eyes: Present: PERRL ENT: hearing intact, clear oral mucosa - Neck Neck: Present: supple, normal ROM - Respiratory Respiratory effort: normal Respiratory: bilateral: CTA - Cardiovascular Heart rate: 78 Rhythm: regular Heart Sounds: Present: S1 & S2. Absent: rub, click - Extremities Extremities: no ischemia, pulses intact, pulses symmetrical, No edema, abnormal (Decreased range of motion in the right knee) Extremity abnormal: other (As above) Peripheral Pulses: within normal limits - Abdominal General gastrointestinal: Present: soft, non-tender, non-distended, normal bowel sounds Female genitourinary: Present: normal - Integumentary Integumentary: Present: clear, warm, dry - Musculoskeletal Musculoskeletal: gait normal, strength equal bilaterally - Psychiatric Psychiatric: appropriate mood/affect, intact judgment & insight - Neurologic Neurologic: CNII-XII intact, moves all extremities Results - Labs Labs: Abnormal lab results 10/01/21 Range/Units 12:13 POC Glucose 123 H (70-105) mg/dL Assessment and Plan - Patient Problems (1) S/P total knee arthroplasty Current Visit: Yes Status: Acute Qualifiers: Laterality: right Qualified Code(s): Z96.651 - Presence of right artificial knee joint (2) HTN (hypertension) Current Visit: No Status: Chronic Qualifiers: Hypertension type: primary hypertension Qualified Code(s): I10 - Essential (primary) hypertension Plan to address problem: Continue antihypertensives and adjust medications as necessary (3) COPD (chronic obstructive pulmonary disease) Current Visit: Yes Status: Acute (4) COPD (chronic obstructive pulmonary disease) Current Visit: Yes Status: Chronic Qualifiers: COPD type: unspecified COPD Qualified Code(s): J44.9 - Chronic obstructive pulmonary disease, unspecified Plan to address problem: Nebulizer treatments as necessary Respiratory assessment and treatment (5) Peripheral neuropathy Current Visit: Yes Status: Chronic Qualifiers: Peripheral neuropathy type: polyneuropathy, unspecified Qualified Code(s): G62.9 - Polyneuropathy, unspecified Plan to address problem: Continue gabapentin (6) DVT prophylaxis Current Visit: No Status: Acute Plan to address problem: On SCDs and GI prophylaxis (7) Advance care planning Current Visit: Yes Status: Acute Plan to address problem: Disease education conducted, care plan discussed, diagnosis discussed, prognosis discussed. Patient acknowledged understanding and agrees with care plan. +30 minutes.
[2021-10-01] MEDS: DOCUSATE SODIUM 100 MG CAP PO SCH (21:48)
[2021-10-01] MEDS ORDERED: ASPIRIN 325 MG TAB PO SCH (22:00)
[2021-10-02] MEDS: ACETAMINOPHEN 325 MG TAB PO SCH ×4 (00:30→08:16)
[2021-10-02] MEDS: MORPHINE 4 MG/1 ML INJ IV PRN ×3 (03:17→14:11)
[2021-10-02 05:52] LABS: Hematocrit 39.6 % (30.3-42.9); Hemoglobin 12.9 gm/dl (10.1-14.3)
[2021-10-02 06:11] LABS: Blood Urea Nitrogen 17 mg/dL (7-17); Calcium 9.3 mg/dL (8.4-10.2); Hemolysis Index 3
[2021-10-02] MEDS ORDERED: ALBUTEROL 8.5 GM MDI INHALATION IH PRN (06:17)
[2021-10-02] MEDS: oxyCODONE 5 MG TAB PO PRN ×2 (06:19→11:47)
[2021-10-02 06:23] LABS: BUN/Creatinine Ratio 28
[2021-10-02] MEDS ORDERED: ALBUTEROL 2.5 MG/3 ML NEBU IH PRN (07:28)
[2021-10-02 07:37] VITALS: BP 142/86
[2021-10-02] MEDS ORDERED: metFORMIN XR 500MG TAB PO SCH (08:00)
--- NOTE | 2021-10-02 08:32 | Progress Note ---
Assessment and Plan Assessment and plan: -- S/P total knee arthroplasty Postop care per orthopedic Pain medications, PT OT -- HTN (hypertension) Continue antihypertensives and adjust medications as necessary --COPD (chronic obstructive pulmonary disease) Nebulizer treatments as necessary Respiratory assessment and treatment -- Peripheral neuropathy Continue gabapentin --DVT prophylaxis On SCDs and GI prophylaxis --Advance care planning Disease education conducted, care plan discussed, diagnosis discussed, prognosis discussed. Patient acknowledged understanding and agrees with care plan. Patient is medically stable. Patient needs to follow with primary care physician for her medical needs. I will sign off History Interval history: I have seen and examined the patient at the bedside patient's chart and medications reviewed Patient with right total knee replacement On postoperative care Patient feels better mild pain in the lower extremity Vital signs noted Hospitalist Physical - Constitutional Vitals: Temp Pulse Resp BP Pulse Ox 97.6 F 85 20 142/86 94 10/02/21 07:37 10/02/21 07:37 10/02/21 07:37 10/02/21 07:37 10/02/21 07:37 General appearance: Present: no acute distress, well-nourished, obese (Morbid obesity) - EENT Eyes: Present: PERRL, EOM intact - Neck Neck: Present: supple, normal ROM - Respiratory Respiratory effort: normal Respiratory: bilateral: diminished, negative: rales, rhonchi, wheezing - Cardiovascular Rhythm: regular Heart Sounds: Present: S1 & S2 - Extremities Extremities: no ischemia, pulses intact, pulses symmetrical - Abdominal General gastrointestinal: soft, non-tender, non-distended, normal bowel sounds - Integumentary Integumentary: Present: clear, warm - Psychiatric Psychiatric: appropriate mood/affect, cooperative - Neurologic Neurologic: moves all extremities, other Results - Labs CBC & Chem 7: 10/02/21 05:12 10/02/21 05:12 Labs: Laboratory Last Values Hgb 12.9 gm/dl (10.1-14.3) 10/02/21 05:12 Hct 39.6 % (30.3-42.9) 10/02/21 05:12 PT 13.4 Sec. (12.2-14.9) 09/29/21 11:35 INR 0.92 (0.87-1.13) 09/29/21 11:35 APTT 25.9 Sec. (24.2-36.6) 09/29/21 11:35 Sodium 138 mmol/L (137-145) 10/02/21 05:12 Potassium 4.4 mmol/L (3.6-5.0) 10/02/21 05:12 Chloride 102.7 mmol/L (98-107) 10/02/21 05:12 Carbon Dioxide 25 mmol/L (22-30) 10/02/21 05:12 Anion Gap 15 mmol/L 10/02/21 05:12 BUN 17 mg/dL (7-17) 10/02/21 05:12 Creatinine 0.6 mg/dL (0.6-1.2) 10/02/21 05:12 Estimated GFR > 60 ml/min 10/02/21 05:12 BUN/Creatinine Ratio 28 % 10/02/21 05:12 Glucose 122 mg/dL (65-100) H 10/02/21 05:12 POC Glucose 120 mg/dL (70-105) H 10/02/21 01:15 Calcium 9.3 mg/dL (8.4-10.2) 10/02/21 05:12 SARS-CoV-2 (PCR) Negative (Negative) 09/29/21 11:25 Blood Type O POSITIVE 10/01/21 06:50 Antibody Screen Negative 10/01/21 06:50 Urena/IV: Voiding Method External Female Catheter Active Medications - Current Medications Current Medications: Generic Name Dose Route Start Last Admin Trade Name Freq PRN Reason Stop Dose Admin Acetaminophen 650 mg 10/01/21 16:00 10/02/21 08:16 Acetaminophen 325 Mg Tab PO 650 mg Q8H [facility] Administration Albuterol 2.5 mg 10/02/21 07:28 Albuterol 2.5 Mg/3 Ml Nebu IH Q4HRT PRN Shortness Of Breath Allopurinol 300 mg 10/02/21 10:00 Allopurinol 300 Mg Tab PO QDAY [facility] Aspirin 81 mg 10/01/21 22:00 10/01/21 21:48 Aspirin 325 Mg Tab PO 81 mg BID [facility] Administration Carvedilol 6.25 mg 10/02/21 10:00 Carvedilol 6.25 Mg Tab PO BID [facility] Celecoxib 200 mg 10/02/21 10:00 Celecoxib 200 Mg Cap PO QDAY [facility] Cetirizine HCl 10 mg 10/02/21 10:00 Cetirizine 10 Mg Tab PO DAILY [facility] Clonazepam 0.5 mg 10/02/21 10:00 Clonazepam 0.5 Mg Tab PO BID [facility] Docusate Sodium 100 mg 10/01/21 22:00 10/01/21 21:48 Docusate Sodium 100 Mg Cap PO 100 mg BID [facility] Administration Gabapentin 800 mg 10/02/21 10:00 Gabapentin 400 Mg Cap PO BID [facility] Hydrochlorothiazide 25 mg 10/02/21 10:00 Hydrochlorothiazide 25 Mg Tab PO QDAY [facility] Hydromorphone HCl 0.25 mg 10/01/21 17:38 10/01/21 16:00 Hydromorphone 0.5 Mg/0.5 Ml Inj IV 10/02/21 17:37 0.25 mg Q10MIN PRN Administration Pain, Moderate (4-6) Sodium Chloride 1,000 mls @ 75 mls/hr 10/01/21 16:00 10/01/21 21:49 Nacl 0.9% 1000 Ml IV 75 mls/hr DIRECT ISSA Administration Cefazolin Sodium 2 gm/ Sodium 100 mls @ 100 mls/hr 10/02/21 08:00 10/02/21 08:26 Chloride IV 10/02/21 08:59 Not Given Q8H [facility] Protocol Metformin HCl 500 mg 10/02/21 08:00 10/02/21 08:17 Metformin Xr 500mg Tab PO 500 mg QDDIAB [facility] Administration Miscellaneous Medication 2 puff 10/02/21 10:00 Tiotropium Br/Olodaterol Hcl [Stiolto Respimat Inhal [place]] IH DAILY [facility] Morphine Sulfate 4 mg 10/01/21 15:57 10/02/21 08:17 Morphine 4 Mg/1 Ml Inj IV 4 mg Q4H PRN Administration Pain , Severe (7-10) Multivitamins 1 each 10/02/21 10:00 Multivitamins ,Therapeutic Tab PO QDAY [facility] Ondansetron HCl 4 mg 10/01/21 15:50 Ondansetron 4 Mg/2 Ml Inj IV ONCE PRN Nausea And Vomiting Ondansetron HCl 4 mg 10/01/21 15:57 Ondansetron 4 Mg/2 Ml Inj IV Q8H PRN Nausea And Vomiting Oxycodone HCl 10 mg 10/01/21 16:04 10/02/21 06:19 Oxycodone 5 Mg Tab PO 10 mg Q4H PRN Administration Pain , Severe (7-10) Oxycodone/Acetaminophen 1 tab 10/02/21 10:00 Oxycodone /Acetaminophen 5-325mg Tab PO DAILY [facility] Sodium Chloride 10 ml 10/01/21 15:57 10/01/21 19:05 Sodium Chloride 0.9% 10 Ml Flush Syringe IV 10 ml PRN PRN Administration LINE FLUSH
[2021-10-02] MEDS ORDERED: hydroCHLOROthiazide 25 MG TAB PO SCH (10:00)
[2021-10-02] MEDS ORDERED: clonazePAM 0.5 MG TAB PO SCH (10:00)
[2021-10-02] MEDS ORDERED: CETIRIZINE 10 MG TAB PO SCH (10:00)
[2021-10-02] MEDS ORDERED: NON-FORMULARY EACH (Metformin 500 MG) PO SCH (10:00)
[2021-10-02] MEDS ORDERED: GABAPENTIN 300 MG PO SCH (10:00)
[2021-10-02] MEDS ORDERED: GABAPENTIN 400 MG CAP PO SCH (10:00)
[2021-10-02] MEDS ORDERED: carvediloL 6.25 MG TAB PO SCH (10:00)
[2021-10-02] MEDS ORDERED: allopurinoL 300 MG TAB PO SCH (10:00)
[2021-10-02] MEDS ORDERED: MULTIVITAMINS ,THERAPEUTIC TAB PO SCH (10:00)
[2021-10-02] MEDS ORDERED: CELECOXIB 200 MG CAP PO SCH (10:00)
[2021-10-02] MEDS ORDERED: ASPIRIN 81 MG TAB CHEW PO SCH (10:00)
[2021-10-02] MEDS ORDERED: ZYRTEC 10 MG PO SCH (10:00)
[2021-10-02] MEDS ORDERED: oxyCODONE /ACETAMINOPHEN 5-325MG TAB PO SCH (10:00)
[2021-10-02] MEDS ORDERED: NON-FORMULARY EACH (Tiotropium Br/Olodaterol Hcl [Stiolto Respimat Inhal Spray] 4 GM Mist. IH SCH (10:00)
[2021-10-02] MEDS: DOCUSATE SODIUM 100 MG CAP PO SCH (10:09)
--- NOTE | 2021-10-02 12:52 | Progress Note ---
Assessment and Plan A/P: 56-year-old female status post right total knee arthroplasty postop day 1 -Overall patient is doing well, patient was able to ambulate with physical therapy patient would like to go home today. - COPD - patient received nebulizer treatments -Morbid obesity -discussion with patient about weight loss. Patient has a BMI of 42.1, this required additional surgical time and extensile surgical approach. -Weightbearing as tolerated -Patient finished postoperative SCIP antibiotic prophylaxis course -Continue physical therapy -Medical consult appreciated - COPd, HTN, morbid obesity -Aspirin 81 mg p.o. twice daily for DVT prophylaxis -Discharge plan to home today Subjective Date of service: 10/02/21 Principal diagnosis: s/p right total knee replacement, COPD, morbid obesity, HTN Interval history: Patient seen and examined at bedside. Patient is sitting at the edge of the bed eating lunch. Patient states she is feeling much better today. Patient was able to get up and ambulate with physical therapy using a walker today. Patient is tolerating oral diet. Patient received nebulizer treatment which helped her breathing, she currently denies any shortness of breath, wheezing. Patient denies any fevers or chills. No other complaints at this time. Objective Vital signs: Vital Signs - 12hr 10/02/21 10/02/21 10/02/21 03:35 05:50 05:53 Temperature 97.4 F L Pulse Rate 68 Respiratory 20 Rate Blood Pressure 140/79 Blood Pressure [Left] O2 Sat by Pulse 98 98 Oximetry 10/02/21 10/02/21 10/02/21 07:37 09:22 10:10 Temperature 97.6 F Pulse Rate 85 85 Respiratory 20 Rate Blood Pressure 142/86 Blood Pressure 142/86 [Left] O2 Sat by Pulse 94 94 Oximetry Narrative Exam: Gen: NAD, Awake and alert. Breathing comfortably Right lower extremity: Dressings are clean, dry, intact. Ankle plantarflexion, dorsiflexion, EHL motor function intact. L4-S1 sensation to light touch intact. Cap refill brisk. Incision: clean and dry Weight bearing status: full - Allied Health Allied health notes reviewed: PT - Labs CBC & BMP: 10/02/21 05:12 10/02/21 05:12 Labs: Abnormal lab results 10/02/21 10/02/21 10/02/21 Range/Units 01:15 05:12 11:29 Glucose 122 H (65-100) mg/dL POC Glucose 120 H 106 H (70-105) mg/dL
--- NOTE | 2021-10-02 12:56 | Discharge Summary ---
Providers - Providers Date of Admission: 10/01/21 15:57 Date of discharge: 10/02/21 Attending physician: SELWYN JORDAN 10/01/21 12:15 Physical Therapy Evaluation and Treat [CONS] Routine Comment: patient will be in recovery room. Reason For Exam: s/p right total knee replacement Mode of Transport?: Wheelchair Weight bearing status?: Full wt bearing Assistive devices?: Yes: rolling walker If so list: Walker 10/01/21 15:57 Consult to Case Management [CONS] Routine Services Needed at Discharge: Physical Therapy Notified:: ROLAND Physical Therapy Evaluation and Treat [CONS] Routine Comment: avoid flexion, add, int rotation of operative hip Reason For Exam: post op therapy 10/01/21 16:07 Consult to Physician [CONS] Routine Comment: Consulting Provider: KATERIN GUILLEN Physician Instructions: Reason For Exam: post-op medical management Primary care physician: NICOLE JANE Hospitalization Reason for admission: Acute care after right total knee replacement given comorbidities Condition: Stable Procedures: Right total knee replacement Hospital course: Patient admitted to hospital for acute care following right total knee arthroplasty. Patient is a history of COPD-former smoker, morbid obesity-BMI 42.1, hypertension. Patient tolerate oral diet. Patient was seen by physical therapy and was able to be gradually cleared for safe discharge to home. Patient was started on aspirin 81 mg p.o. twice daily on postop day #1 for DVT prophylaxis. Medicine team was consulted for postoperative management of hypertension and COPD. Patient had nebulizer treatments to help with her breathing postoperatively. Patient did not have any fevers during her hospital stay. Disposition: 01 HOME / SELF CARE / HOMELESS Final Discharge Diagnosis (Prints w/discharge instructions): Right knee osteoarthritis, COPD, hypertension, morbid obesity Core Measure Documentation - Palliative Care Palliative Care/ Comfort Measures: Not Applicable - Core Measures Any of the following diagnoses?: none Exam - Physical Exam Narrative exam: Gen: NAD, Awake and alert. Breathing comfortably Right lower extremity: Dressings are clean, dry, intact. Ankle plantarflexion, dorsiflexion, EHL motor function intact. L4-S1 sensation to light touch intact. Cap refill brisk. - Constitutional Vitals: Temp Pulse Resp BP Pulse Ox 97.6 F 85 20 142/86 94 10/02/21 07:37 10/02/21 10:10 10/02/21 07:37 10/02/21 10:10 10/02/21 09:22 General appearance: Present: no acute distress - EENT Eyes: Present: EOM intact ENT: hearing intact - Neck Neck: Present: supple - Respiratory Respiratory effort: normal - Extremities Extremity abnormal: tenderness Peripheral Pulses: within normal limits - Abdominal General gastrointestinal: Present: soft, non-tender Female genitourinary: Present: deferred - Rectal Rectal Exam: deferred - Musculoskeletal Musculoskeletal: right sided weakness, other (Status post right total knee replacement) - Neurologic Neurologic: moves all extremities - Allied Health Allied health notes reviewed: nursing, PT, case management Plan Activity: advance as tolerated, no driving until cleared by PCP Weight Bearing Status: Full Weight Bearing Diet: regular Wound: keep clean and dry, per your surgeon's advice Special Instructions: smoking cessation, no heavy lifting, physical therapy Durable Medical Equipment Needed Upon Discharge: Walker-Rolling Additional Instructions: Follow-up printed discharge instructions given by surgeon Follow up with: NICOLE JANE JR, MD [Primary Care Provider] - 7 Days HELEN VILLA DO [Staff Physician] - 14 Days
[2021-10-02] MEDS ORDERED: ACETAMINOPHEN 325 MG TAB PO PRN (16:15)
[2021-10-02] MEDS ORDERED: MORPHINE 4 MG/1 ML INJ IV PRN (16:15)
[2021-10-02] MEDS ORDERED: traMADol 50 MG TAB PO PRN (16:15)
== END 2021-10-02 16:20 | disposition home or self-care (01) ==
LOC: OR 06:05 → EDSTATUS 08:00 → 3A 15:57 → INTOOBSV 15:57 → 3A 17:26
PROVIDERS: ADMIT Orthopaedic Surgery; ATTEND Internal Medicine
DX: M17.11 Unilateral primary osteoarthritis, right knee (principal); Z20.822 Contact with and (suspected) exposure to COVID-19; J44.9 Chronic obstructive pulmonary disease, unspecified; I10 Essential (primary) hypertension; G62.9 Polyneuropathy, unspecified; E66.01 Morbid (severe) obesity due to excess calories; Z87.891 Personal history of nicotine dependence; Z79.899 Other long term (current) drug therapy; Z68.41 Body mass index [BMI] 40.0-44.9, adult; Z79.82 Long term (current) use of aspirin; Z98.890 Other specified postprocedural states
CPT/HCPCS: 27447; 36415; 73560; 80048; 82962; 85014; 85018; 85610; 85730; 86850; 86900; 86901; 87641; 88309; 88311; 94660; 94760; 96365; 96366; 96375; 96376; 97110; 97116; 97162; C1713; C1776; J0690; J0696; J1030; J1100; J1170; J1885; J2250; J2270; J2405; J2704; J2795; J3010; J3370; J3490; J7030; J7120; U0003; G0378; J7121